=== PATIENT | female | born 1950 | race African-American/Black ===

== ENCOUNTER 2017-11-16 09:54 | Day surgery (SDC) | payer OTHER ==
[~2017-11-16] VITALS: Ht 172.7 cm; Wt 108.9 kg
[~2017-11-16 09:54] MED LIST: ASPIR-LOW81 MG PO; FLEXERIL10 MG PO; MELOXICAM7.5 MG PO; NAPROSYN375 MG PO; NEXIUM40 MG PO; ONE DAILY FOR1 EAC1 PO; OXYBUTYNIN CHLOR5 MG PO; POTASSIUM CHLORIDE; SERTRALINE HCL100 MG PO; VALIUM5 MG PO; VITAMIN D1000 UNIT PO; ZOFRAN4 MG PO
== END 2017-11-16 18:13 | disposition home or self-care (01) ==
LOC: CATH 09:54
DX: R07.9 Chest pain, unspecified (principal); G47.30 Sleep apnea, unspecified; F41.1 Generalized anxiety disorder; E66.9 Obesity, unspecified; Z68.37 Body mass index [BMI] 37.0-37.9, adult; Z79.82 Long term (current) use of aspirin
CPT/HCPCS: C1769; C1894; J0461; J1644; J2250; J3010; J7040